=== PATIENT | female | born 1960 | race Caucasian/White ===

== ENCOUNTER → 2016-11-27 | Day surgery (SDC) | payer OTHER ==
[~2016-11-27] MED LIST: ATROPINE SULFATE 1% OPHT SOLN 2 ML BTL ONE; DEXAMETHASONE SOD PHOS 4 MG/ML VIAL ONE; EPINEPHrine HCL (1:1000) 1 MG/ML VIAL ONE; FLURBIPROFEN 0.03% OPHT SOLN 2.5 ML BTL ONE; HYALURONIDASE/LIDOCAINE/BUPIVACAINE 11 ML SYR TL ONE; LACTATED RINGER'S 1000 ML INJ 1,000 ML ONE; NEOMYCIN/POLYMYXIN/DEXAMETHASONE OPTH OINT 3.5 GM TUBE ONE; ONDANSETRON HCL 4 MG/2 ML VIAL IV PUSH ONE; PHENYLEPHRINE HCL 2.5% OPTH SOLN 2 ML BTL ONE; PROPOFOL 200 MG/20 ML AMP IV ONE; SODIUM CHLORIDE 0.9% INJ 10 ML ONE; TETRACAINE 0.5% OPTH SOLN 4 ML BTL ONE; TROPICAMIDE 1% OPHT SOLN 15 ML BTL ONE; ceFAZolin INJ 1,000 MG VIAL ONE
== END | disposition home or self-care (01) ==
LOC: ESDC 12:25
PROVIDERS: ATTEND Ophthalmology Retina Specialist
DX: H43.12 Vitreous hemorrhage, left eye (principal); E11.39 Type 2 diabetes mellitus with other diabetic ophthalmic complication; Z79.4 Long term (current) use of insulin
CPT/HCPCS: 00145; 67043; 82948; J0171; J0690; J1100; J2405; J7120

== ENCOUNTER → 2017-01-17 | Day surgery (SDC) | payer OTHER ==
[~2017-01-17] MED LIST changes: -ONDANSETRON HCL 4 MG/2 ML VIAL IV PUSH ONE; +PHENYLEPHRINE HCL 2.5 % OPTH SOLN 15 ML BTL ONE; -PHENYLEPHRINE HCL 2.5% OPTH SOLN 2 ML BTL ONE; +TETRACAINE 0.5% OPTH SOLN 15 ML BTL ONE; -TETRACAINE 0.5% OPTH SOLN 4 ML BTL ONE; +TOBRAMYCIN/DEXAMETHASONE OPTH OINT 3.5 GM TUBE ONE; +TRIAMCINOLONE ACETONIDE 40 MG/ML VIAL ONE
--- NOTE | 2017-02-05 10:53 | TN ---
cc: KB DOMINIQUE MD DATE OF SURGERY: 01/17/2017 DATE OF : 1960 PREOPERATIVE DIAGNOSIS Proliferative diabetic retinopathy, traction retinal detachment, nonclearing vitreous hemorrhage, right eye. POSTOPERATIVE DIAGNOSIS Proliferative diabetic retinopathy, traction retinal detachment, nonclearing vitreous hemorrhage, right eye. PROCEDURE Pars plana vitrectomy, membrane peeling, endolaser, right eye. ANESTHESIA MAC. SURGEON Gerry. COMPLICATIONS None. DETAILS OF PROCEDURE After informed consent was obtained, the patient was brought to the operating room and placed under brief anesthesia with propofol. 10 cc of a 50/50 mixture of 0.75% Marcaine and 2% lidocaine was placed in a modified Van Lint lid block as well as a peribulbar injection. The patient was then prepared and draped in the usual sterile fashion. A wire lid speculum was placed in the patient's right eye. 23-gauge vitrectomy cannulas were then placed in the lower temporal, supratemporal and supranasal quadrants 3 millimeters posterior to the corneoscleral limbus. Infusion cannula was placed lower temporally. Core vitrectomy was then performed. There was already a posterior vitreous detachment and no significant membranes were present. There were vitrectomies carried out as far as possible to the vitreous base. Endolaser was used to place panretinal photocoagulation. Careful indirect ophthalmoscopy with scleral depression was then performed and no peripheral retinal breaks were noted. The three vitrectomy cannulas were then removed. Subconjunctival injections of dexamethasone and Ancef were placed. An atropine drop, Maxitrol ointment, patch and shield were then applied. The patient tolerated the procedure well. There were no complications. She will follow-up tomorrow in our [facility] [place] [facility]. Kb Dominique MD TAB/BT /2:22 PM /10:43 AM
== END | disposition home or self-care (01) ==
LOC: ESDC 11:26
PROVIDERS: ATTEND Ophthalmology Retina Specialist
DX: H43.11 Vitreous hemorrhage, right eye (principal); E11.9 Type 2 diabetes mellitus without complications; Z79.4 Long term (current) use of insulin
CPT/HCPCS: 00145; 67043; 82948; J0171; J0690; J1100; J7120; J3301

== ENCOUNTER → 2017-10-17 | Day surgery (SDC) | payer OTHER ==
[~2017-10-17] MED LIST changes: -HYALURONIDASE/LIDOCAINE/BUPIVACAINE 11 ML SYR TL ONE; +HYALURONIDASE/LIDOCAINE/BUPIVACAINE 5 ML SYR ONE; -TOBRAMYCIN/DEXAMETHASONE OPTH OINT 3.5 GM TUBE ONE; -TRIAMCINOLONE ACETONIDE 40 MG/ML VIAL ONE
--- NOTE | 2017-10-24 08:30 | MP ---
cc: Kb Garrett MD DATE OF OPERATION: 10/17/2017 PREOPERATIVE DIAGNOSIS: Proliferative diabetic retinopathy, nonclearing vitreous hemorrhage, right eye. POSTOPERATIVE DIAGNOSIS: Proliferative diabetic retinopathy, nonclearing vitreous hemorrhage, right eye. PROCEDURE PERFORMED: Pars plana vitrectomy, endolaser, right eye. ANESTHESIA: MAC. SURGEON: Dr. Kb Garrett MD COMPLICATIONS: None. PROCEDURE PERFORMED: Pars plana vitrectomy and endolaser, right eye. ANESTHESIA: MAC. SURGEON: Kb Garrett MD. COMPLICATIONS: ____ PROCEDURE: After informed consent was obtained, the patient was brought to the operating room and placed under brief anesthesia with propofol. 10 cc of a 50/50 mixture of 0.75% Marcaine and 2% lidocaine was placed in a modified Van Lint lid block as well as a peribulbar injection. The patient was then prepared and draped in the usual sterile fashion. A wire lid speculum was placed in the patient's right eye. 23-gauge vitrectomy cannulas were then placed in the lower temporal, supratemporal and supranasal quadrants 3 millimeters posterior to the corneoscleral limbus. Infusion cannula was placed lower temporally. Core vitrectomy was then performed. There was already a posterior vitreous detachment and no significant membranes were present. There were vitrectomies carried out as far as possible to the vitreous base. Endolaser was used to place panretinal photocoagulation. Careful indirect ophthalmoscopy with scleral depression was then performed and no peripheral retinal breaks were noted. The three vitrectomy cannulas were then removed. Subconjunctival injections of dexamethasone and Ancef were placed. An atropine drop, Maxitrol ointment, patch and shield were then applied. The patient tolerated the procedure well. There were no complications. She will follow up tomorrow in our [place] office ADDENDUM: The patient had previous vitrectomy, but was having continued hemorrhaging and this was cleared along with some residual vitreous behind the lens and the iris and some additional endolaser was placed. She will followup tomorrow in our [place] office. Kb Garrett MD TAB/TL , 09:01 AM , 09:32 AM
== END | disposition home or self-care (01) ==
LOC: ESDC 14:11
PROVIDERS: ATTEND Ophthalmology Retina Specialist
DX: E11.3591 Type 2 diabetes mellitus with proliferative diabetic retinopathy without macular edema, right eye (principal); H43.11 Vitreous hemorrhage, right eye
CPT/HCPCS: 00145; 67040; 82948; J0171; J0690; J1100; J7120